=== PATIENT | female | born 1960 | race American Indian/Alaskan Native ===

== ENCOUNTER 2020-11-19 13:13 | Emergency (ER) | payer OTHER, BC ==
[2020-11-19] MEDS ORDERED: HYDROcodone/ACETAMINOPHEN 7.5-325MG TAB PO ONE (14:37)
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
[2020-11-19 16:37] VITALS: BP 134/74
== END 2020-11-19 16:37 | disposition home or self-care (01) ==
LOC: ED 13:13
DX: M54.6 Pain in thoracic spine (principal); M54.2 Cervicalgia; I10 Essential (primary) hypertension; Z98.890 Other specified postprocedural states; Z87.39 Personal history of other diseases of the musculoskeletal system and connective tissue; V49.59XA Passenger injured in collision with other motor vehicles in traffic accident, initial encounter; Y92.410 Unspecified street and highway as the place of occurrence of the external cause; Y93.89 Activity, other specified; Y99.8 Other external cause status
CPT/HCPCS: 72125; 72128

== ENCOUNTER 2021-04-20 20:26 | Emergency (ER) | payer BC ==
[2021-04-20] MEDS ORDERED: ALBUTEROL 2.5 MG/3 ML NEBU IH ONE (22:20)
[2021-04-20] MEDS ORDERED: predniSONE 20 MG TAB PO ONE (22:20)
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
--- NOTE | 2021-04-21 00:03 | XRay Report ---
XR chest routine 2V INDICATION / CLINICAL INFORMATION: cough wheezing sob. COMPARISON: None available. FINDINGS: SUPPORT DEVICES: None. HEART /PULMONARY VASCULATURE: No significant abnormality. LUNGS / PLEURA: No significant pulmonary or pleural abnormality. No pneumothorax. ADDITIONAL FINDINGS: Right convex scoliotic curvature. IMPRESSION: 1. No acute findings. Signer Name: Aftab Appiah MD Signed: 04/20/2021 11:58 PM Workstation Name: [id number]
[2021-04-21 00:34] VITALS: BP 174/97
== END 2021-04-21 00:37 | disposition home or self-care (01) ==
LOC: ED 20:26
DX: J40 Bronchitis, not specified as acute or chronic (principal); I10 Essential (primary) hypertension; E11.9 Type 2 diabetes mellitus without complications; Z98.890 Other specified postprocedural states; Z79.899 Other long term (current) drug therapy
CPT/HCPCS: 71046; 94640; 99283; J7512